=== PATIENT | male | born 1940 | race Caucasian/White ===

== ENCOUNTER 2023-12-03 17:18 | Emergency (ER) | payer OTHER, SELFPAY ==
[2023-12-03] VITALS (15 sets, daily range): BP systolic 108–176; BP diastolic 59–76; PULSE 66–76; RESP 18; TEMP 36.2; O2SAT 93–99; BMI 27.7
--- NOTE | 2023-12-03 17:49 | ED.NAVMDI ---
HPI - Nausea/Vomiting/Diarrhea General Chief complaint: GI Bleed Stated complaint: vomiting blood Time Seen by Provider: 12/03/23 17:21 History of Present Illness HPI Narrative: This 83-year-old male comes in reporting rather sudden onset of vertigo symptoms that was soon followed by nausea with vomiting. He states that he vomited 5 times in in the last emesis there was some dark red color that seem more suspicious of blood. The patient comes in and has normal vital signs. While I was initially interviewing him he had a very large dark red emesis. The patient does have a history of gastroesophageal reflux disease and had been taking omeprazole for a long time but discontinued this a few months ago because his magnesium was at 0.9. He has now been taking famotidine and magnesium supplementation. He did not have any lightheadedness. He continues to have some vertigo symptoms. He does not report any weakness or unilateral neurologic symptoms. Related Data Home Medications ?Medication ?Instructions ?Recorded ?Confirmed amlodipine 5 mg tablet 5 mg PO DAILY 12/03/23 12/03/23 aspirin 81 mg tablet,delayed 81 mg PO DAILY 12/03/23 12/03/23 release (Adult Aspirin Regimen) coenzyme Q10 100 mg capsule (Co 100 mg PO DAILY 12/03/23 12/03/23 Q-10) famotidine 40 mg tablet 40 mg PO DAILY 12/03/23 12/03/23 isosorbide mononitrate 60 mg 60 mg PO DAILY 12/03/23 12/03/23 tablet,extended release 24 hr lisinopril 40 mg tablet 40 mg PO DAILY 12/03/23 12/03/23 metformin 1,000 mg tablet,extended 1,000 mg PO DAILY 12/03/23 12/03/23 release 24hr (osmotic) metoprolol tartrate 50 mg tablet 50 mg PO BID 12/03/23 12/03/23 rosuvastatin 20 mg tablet 20 mg PO DAILY 12/03/23 12/03/23 Allergies Allergy/AdvReac Type Severity Reaction Status Date / Time morphine Allergy Mild Verified 12/03/23 17:29 Review of Systems Status of ROS: Reports: 10 or more systems reviewed and unremarkable except as noted in History and below Narrative: Constitutional: No fevers, no weight gain or loss. Eyes: No discharge. No vision changes. HENT: No congestion, no sore throat, no ear pain. Cardiovascular: No chest pain, no palpitations. Respiratory: No shortness of breath, no wheezes, no cough. Gastrointestinal: No abdominal pain. No diarrhea. Nausea and vomiting as described above. Genitourinary: No dysuria, no hematuria. Musculoskeletal: Normal range of motion. Skin: No rashes, no pruritis. Neurological: No dizziness, weakness, sensory change, speech change. Endo/Heme/Allergies: No bruising or bleeding. No polydipsia. Pysch: no suicidality, no anxiety, no insomnia. All other systems reviewed and are negative. [facility] Social History Smoking Status: Former smoker Do you use any of these nicotine containing products: None How often do you have a drink containing alcohol: monthly or less AUDIT-C Alcohol total score: 1 Non-prescribed substance use: denies use Exam Narrative: Exam Narrative: Constitutional: Well-developed, well-nourished, no acute distress. HEENT: Normocephalic, atraumatic. Neck: Normal range of motion. Nontender. Supple. Heart: Regular. No murmurs. Normal rate. Intact distal pulses. Lungs: Clear to auscultation. No chest discomfort. No wheezes, rhonchi, or rales. Abdomen: Normal bowel sounds. Nontender. No rebound tenderness. Large dark red emesis. Genitalia: Deferred. Back: No midline tenderness. Normal range of motion. Extremities: Normal range of motion. No injury. Skin: Intact. No rash. Warm. No erythema or pallor. Neurologic: No altered sensation. No weakness. Alert and oriented. Psychiatric: No suicidality. No anxiety or depression. No insomnia. Nursing notes and vitals signs are reviewed. Const: Vital Signs, click to edit/add: Vital Signs - 24 hr 12/03/23 17:24 12/03/23 17:34 12/03/23 17:57 Temperature 97.2 F L Pulse Rate Pulse Rate [Right Pulse Oximeter] 76 73 Respiratory Rate 18 Blood Pressure Blood Pressure [Le ft Upper Arm] 176/76 H 133/75 Pulse Oximetry 99 97 Oxygen Delivery Me thod Room Air Room Air 12/03/23 18:19 12/03/23 18:20 Temperature Pulse Rate 69 70 Pulse Rate [Right Pulse Oximeter] Respiratory Rate Blood Pressure 120/68 Blood Pressure [Le ft Upper Arm] Pulse Oximetry 96 97 Oxygen Delivery Me thod Course Vital Signs Vital signs: Initial Vital Signs Pulse Rate 76 12/03/23 17:24 Pulse Rhythm Regular 12/03/23 17:24 Respiratory Rate 18 12/03/23 17:24 Blood Pressure 176/76 H 12/03/23 17:24 Blood Pressure Mean 109 H 12/03/23 17:24 Blood Pressure Position Sitting 12/03/23 17:24 Pulse Oximetry 99 12/03/23 17:24 Oxygen Delivery Method Room Air 12/03/23 17:24 Vital Signs Pulse Rate 76 12/03/23 17:24 Respiratory Rate 18 12/03/23 17:24 Blood Pressure 176/76 H 12/03/23 17:24 Pulse Oximetry 99 12/03/23 17:24 Oxygen Delivery Method Room Air 12/03/23 17:24 Temperature 97.2 F L 12/03/23 17:34 Pulse Rate 70 12/03/23 18:20 Respiratory Rate 18 12/03/23 17:24 Blood Pressure 120/68 12/03/23 18:19 Pulse Oximetry 97 12/03/23 18:20 Oxygen Delivery Method Room Air 12/03/23 17:57 Medications Administered Medications: Discontinued Medications Generic Name Dose Route Start Last Admin Trade Name Freq PRN Reason Stop Dose Admin Sodium Chloride 1,000 mls @ 1,000 mls/hr 12/03/23 18:00 12/03/23 18:05 0.9 % Sodium Chloride 1000 Ml IV 12/03/23 18:59 1,000 mls/hr .Q1H DELVIN Administration Ondansetron HCl 4 mg 12/03/23 17:49 12/03/23 18:03 Ondansetron 2 Mg/Ml Inj IVP 12/03/23 17:50 4 mg ONCE ONE Administration MDM - Nausea/Vomiting/Diarrhea MDM Narrative Medical decision making narrative: This 83-year-old male comes in with vertigo symptoms that cause nausea and vomiting. As he continued to have episodes of vomiting he started this noticed some dark red color to the vomit that was suspicious for blood. He did have an episode of vomiting like this in the emergency department. Two IVs were established and labs are acquired. The patient received a L of normal saline intravenously. He consistently had normal vital signs and states that he is feeling better. He is not reporting vertigo symptoms any longer. His neurologic exam is completely normal. Lab results also returned with reassuring findings. His hemoglobin is 14.7. His lactate returned elevated at 4.0 but he is not showing any sign of sepsis or infection. His white count is in normal range. The patient states that he is feeling better and has not had any continued sign of ongoing bleeding. He has not had any diarrhea or dark colored stools. The patient states that he would like to go home. IA stated that this is more likely a Maryan-Luis tear that occurred because of his aggressive vomiting related to the vertigo. He lives about a mile the patient did receive an IV dose of Protonix 40 mg. He was advised a few months ago to follow-up with his primary physician and consider the role of an endoscopy. I stated that this would be the best test to evaluate further. He will call for appointment or return if symptoms are recurrent. from here and would be able to return if symptoms are recurrent or ongoing. Lab Data Labs: Lab Results 12/03/23 Range/Units 17:58 WBC 8.79 (4.50-11.00) K/uL RBC 4.66 (4.30-5.90) m/uL Hgb 14.7 (13.5-17.5) gm/dL Hct 43.9 (37.0-53.0) % MCV 94 (80-100) fL MCH 32 (26-34) pg MCHC 34 (32-36) gm/dL RDW Coeff of Brennon 12.2 (11.5-15.5) % Plt Count 228 (140-440) K/uL Neut % (Auto) 66.6 (42.0-72.0) % Lymph % (Auto) 22.2 (20-44) % [place] % (Auto) 8.6 (0.0-11.0) % Eos % (Auto) 1.8 (0.0-7.0) % Baso % (Auto) 0.6 (0.0-3.0) % Neut # (Auto) 5.85 (1.7-7.0) K/uL Lymph # (Auto) 1.95 (0.90-2.90) K/uL [place] # (Auto) 0.80 (0.00-0.90) K/UL Eos # (Auto) 0.16 (0.00-0.50) K/uL Baso # (Auto) 0.05 (0.00-0.30) K/uL Abs Immat Gran (auto) 0.02 (0.00-0.30) K/uL Imm/Tot Granulo (auto) 0.2 % Sodium 133 L (135-149) mmol/L Potassium 3.9 (3.6-5.1) mmol/L Chloride 95 L (96-114) mmol/L Carbon Dioxide 24 (20-32) mmol/L Anion Gap 14 (7-15) mEq/L BUN 18 (7-30) mg/dL Creatinine 0.9 (0.5-1.5) mg/dL Estimated Creat Clear 65.47 Estimated GFR 86 ml/min Glucose 181 H (60-115) mg/dL Lactate 4.0 H (0.5-1.9) mmol/L Calcium 9.7 (8.4-10.6) mg/dL Magnesium 1.5 (1.5-2.6) mg/dL Total Bilirubin 1.3 (0.1-1.5) mg/dL Direct Bilirubin 0.3 (0.0-0.5) mg/dL AST 41 H (12-35) U/L ALT 23 (4-50) U/L Alkaline Phosphatase 51 (40-150) U/L Total Protein 7.4 (6.0-8.3) g/dL Albumin 4.8 (3.3-5.0) g/dL Blood Type O Positive Discharge Plan Discharge Clinical Impression: Maryan-Luis syndrome, Vertigo Patient Disposition: Home w/ Parent or Adult Condition: Improved Additional Instructions: Continue current plans. Increase diet as tolerated. Follow up with MD return if symptoms are recurrent. Prescriptions: No Action metoprolol tartrate 50 mg tablet 50 mg PO BID famotidine 40 mg tablet 40 mg PO DAILY lisinopril 40 mg tablet 40 mg PO DAILY rosuvastatin 20 mg tablet 20 mg PO DAILY metformin 1,000 mg tablet extended release 24hr 1,000 mg PO DAILY isosorbide mononitrate 60 mg tablet extended release 24 hr 60 mg PO DAILY amlodipine 5 mg tablet 5 mg PO DAILY aspirin [Adult Aspirin Regimen] 81 mg tablet,delayed release (DR/EC) 81 mg PO DAILY coenzyme Q10 [Co Q-10] 100 mg capsule 100 mg PO DAILY Follow Up/Referrals: Provider,Not a Local [Primary Care Provider] - Stand Alone Forms: [facility] Info Instructions
[2023-12-03] MEDS: ONDANSETRON 2 MG/ML inj 4 MG IVP (18:03)
[2023-12-03 18:05] LABS: Basophils Absolute Auto 0.05 K/uL (0.00-0.30); Basophils Percent Auto 0.6 % (0.0-3.0); Eosinophils Absolute Auto 0.16 K/uL (0.00-0.50); Eosinophils Percent Auto 1.8 % (0.0-7.0); Hematocrit 43.9 % (37.0-53.0); Hemoglobin* 14.7 gm/dL (13.5-17.5); Immature Granulocytes Abs Auto 0.02 K/uL (0.00-0.30); Immature Granulocytes Pct Auto 0.2 %; Lymphocytes Absolute Auto 1.95 K/uL (0.90-2.90); Lymphocytes Percent Auto 22.2 % (20-44); Mean Corpuscular HGB Conc 34 gm/dL (32-36); Mean Corpuscular Hemoglobin 32 pg (26-34); Mean Corpuscular Volume 94 fL (80-100); Monocytes Percent Auto 8.6 % (0.0-11.0); Neutrophils Absolute Auto 5.85 K/uL (1.7-7.0); Neutrophils Percent Auto 66.6 % (42.0-72.0); Platelet Count* 228 K/uL (140-440); RDW Coefficient of Variation % 12.2 % (11.5-15.5); Red Blood Count 4.66 m/uL (4.30-5.90); White Blood Count* 8.79 K/uL (4.50-11.00)
[2023-12-03] MEDS: 0.9 % SODIUM CHLORIDE 1000 ml 1,000 ML IV (18:05)
[2023-12-03 18:17] LABS: Slide Review Reflex No
[2023-12-03 18:19] LABS: Chloride* 95 mmol/L (96-114); Potassium* 3.9 mmol/L (3.6-5.1); Sodium* 133 mmol/L (135-149)
[2023-12-03 18:22] LABS: Anion Gap 14 mEq/L (7-15); Blood Urea Nitrogen* 18 mg/dL (7-30); Carbon Dioxide* 24 mmol/L (20-32); Creatinine* 0.9 mg/dL (0.5-1.5); Est. Creatinine Clearance* 65.47; Estimated Glomerular Filt Rate 86 ml/min
[2023-12-03 18:23] LABS: Calcium* 9.7 mg/dL (8.4-10.6); Glucose* 181 mg/dL (60-115)
[2023-12-03 18:43] LABS: Albumin* 4.8 g/dL (3.3-5.0)
[2023-12-03 18:46] LABS: Alkaline Phosphatase* 51 U/L (40-150); Aspartate Amino Transferase* 41 U/L (12-35); Bilirubin Direct* 0.3 mg/dL (0.0-0.5); Bilirubin Total* 1.3 mg/dL (0.1-1.5); Magnesium* 1.5 mg/dL (1.5-2.6); Total Protein* 7.4 g/dL (6.0-8.3)
[2023-12-03 18:47] LABS: Alanine Aminotransferase* 23 U/L (4-50)
[2023-12-03] MEDS: PANTOPRAZOLE SODIUM 40 MG INJ IVP (19:40)
== END 2023-12-03 19:49 | disposition home or self-care (01) ==
PROVIDERS: Emergency Provider Emergency Medicine Emergency Medical Services
DX: K22.6 Gastro-esophageal laceration-hemorrhage syndrome (principal); R42 Dizziness and giddiness
CPT/HCPCS: 36415; 80048; 80076; 83605; 83735; 85025; 86850; 86900; 86901; 96361; 96374; 96375; 99284; J2405; J2470; J7030

== ENCOUNTER 2023-12-31 08:21 | Emergency (ER) | payer OTHER, SELFPAY ==
[2023-12-31 08:37] VITALS: BP 184/87; PULSE 61; PULSE 68; RESP 14; RESP 18; TEMP 36.1; O2SAT 96; O2SAT 98; BMI 27.4
[2023-12-31 09:02] VITALS: BP 172/80; PULSE 61; RESP 16; O2SAT 96
[2023-12-31 09:32] VITALS: BP 170/88; PULSE 67; RESP 14; O2SAT 97
--- NOTE | 2023-12-31 09:32 | CRLHL7_ITS ---
For Patients: As a result of the Century Cures Act, medical imaging exams and procedure reports are released immediately into your electronic medical record. You may view this report before your referring provider. If you have questions, please contact your health care provider. INDICATION: COVID, possible pneumonia. COMPARISON: None. TECHNIQUE: CT chest without contrast. Multiplanar axial, coronal, and sagittal reformats are included. Intravenous contrast: None FINDINGS: Airway: Normal tracheobronchial tree. Lungs: Clustered calcified granulomas in the left lower lobe. No consolidations. Normal appearance of the pulmonary interstitium. Pleura: No pleural effusion. No pneumothorax. Lymph nodes: No thoracic adenopathy. Mediastinum: No pneumomediastinum. No mass. Heart and great vessels: No pericardial effusion. Normal cardiac chamber size. Heavy atherosclerotic plaques. 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 No aortic aneurysm. Normal caliber main pulmonary artery. Chest wall: Normal. No masses. Upper abdomen: Cholecystectomy. Splenic granulomas. Single coarse calcification in the pancreatic tail. Bones: No fractures. No focal bone lesions. IMPRESSION: Lungs clear. No pneumonia. Please note that all CT scans at this facility use dose modulation, iterative reconstruction, and/or weight-based dosing when appropriate to reduce radiation dose to as low as reasonably achievable. Dictated by Stefanie Garcia MD @ 12/31/2023 10:22:53 AM (Electronically Signed)
--- NOTE | 2023-12-31 09:32 | CRLHL7_ITS ---
For Patients: As a result of the Century Cures Act, medical imaging exams and procedure reports are released immediately into your electronic medical record. You may view this report before your referring provider. If you have questions, please contact your health care provider. INDICATION: Altered mental status, COVID. COMPARISON: None. TECHNIQUE: CT of the brain / head without intravenous contrast. Multiplanar axial, coronal, and sagittal reformats were reconstructed. FINDINGS: No intracranial hemorrhage. Very minimal age-related parenchymal volume loss. No acute or subacute cortically based infarct. No mass or mass effect. Mild asymmetry of the lateral ventricles is within normal variation of development. No skull fractures. No worrisome focal bone lesion. Mild diffuse paranasal sinus mucosal thickening without any air-fluid levels. The mastoids and middle ears are well aerated and clear. IMPRESSION: 1. Normal intracranial contents. 2. Mild paranasal sinus mucosal thickening. Please note that all CT scans at this facility use dose modulation, iterative reconstruction, and/or weight-based dosing when appropriate to reduce radiation dose to as low as reasonably achievable. Dictated by Stefanie Garcia MD @ 12/31/2023 10:14:51 AM (Electronically Signed)
--- NOTE | 2023-12-31 09:39 | ED_ITS ---
HPI - General Adult General Date Seen: 12/31/23 Chief complaint: Altered Mental Status Stated complaint: Covid positive, confused, throwing up Time Seen by Provider: 12/31/23 08:26 Source: patient and family Mode of arrival: ambulatory Limitations: no limitations History of Present Illness HPI narrative: Patient is an 83-year-old male presenting to emergency department with his for concerns of altered mental status, COVID positive, nausea, dizziness. His states the patient was doing well but they Saturday started having [place] He tested positive for COVID home. She then noticed this morning he seemed to be confused and is not exactly where he was. This is abnormal for him and she was concerned so she called the triage line was told to come to the emergency department for evaluation. But time they arrived to the emergency department he is now back to his cognitive baseline is able answer all questions appropriately she says. He does note he is currently feeling lightheaded but does feel better when in bed. Does notice he gets dizzy me looks to the left but otherwise is not having any dizziness. Describes dizziness as the room is spinning. Was diagnosed with peripheral vertigo 2 weeks ago that has since resolved. This feels similar. He states he has been vomiting quite a bit today and is still feeling nauseated. Has not taking anything for nausea at home. He also started coughing up yellow phlegm. Denies abdominal pain, headache, weakness, dizziness, diarrhea, constipation. He does feel fatigued. Related Data Home Medications ?Medication ?Instructions ?Recorded ?Confirmed amlodipine 5 mg tablet 5 mg PO DAILY 12/03/23 12/03/23 aspirin 81 mg tablet,delayed 81 mg PO DAILY 12/03/23 12/03/23 release (Adult Aspirin Regimen) coenzyme Q10 100 mg capsule (Co 100 mg PO DAILY 12/03/23 12/03/23 Q-10) famotidine 40 mg tablet 40 mg PO DAILY 12/03/23 12/03/23 isosorbide mononitrate 60 mg 60 mg PO DAILY 12/03/23 12/03/23 tablet,extended release 24 hr lisinopril 40 mg tablet 40 mg PO DAILY 12/03/23 12/03/23 metformin 1,000 mg tablet,extended 1,000 mg PO DAILY 12/03/23 12/03/23 release 24hr (osmotic) metoprolol tartrate 50 mg tablet 50 mg PO BID 12/03/23 12/03/23 rosuvastatin 20 mg tablet 20 mg PO DAILY 12/03/23 12/03/23 Previous Rx's ?Medication ?Instructions ?Recorded nirmatrelvir 300 mg (150 mg See Rx Instructions PO .COMPLEX 12/31/23 x2)-ritonavir 100 mg tablet,dose #30 ea pack (Paxlovid) Allergies Allergy/AdvReac Type Severity Reaction Status Date / Time morphine Allergy Mild Verified 12/03/23 17:29 Review of Systems Status of ROS: Reports: 10 or more systems reviewed and unremarkable except as noted in History and below [facility] Social History Smoking Status: Former smoker Do you use any of these nicotine containing products: None How often do you have a drink containing alcohol: monthly or less AUDIT-C Alcohol total score: 1 Non-prescribed substance use: denies use Exam Narrative: Exam Narrative: Const: Well-nourished, Well-developed, in mild distress Eyes: PERRL, no conjunctival injection, and symmetrical lids HENT: Atraumatic external nose and ears. Moist mucous membranes. Neck: Symmetric, trachea midline, No thyromegaly. CVS: RRR, No murmurs or gallops. Peripheral pulses 2+ and equal in all extremities RESP: Unlabored respiratory effort. Clear to auscultation bilaterally. GI: Nontender/Nondistended, No rebound or guarding. MSK:Extremities w/o deformity, Normal Active ROM Skin: Warm, Dry. No rashes or lesions. Neuro: Normal Muscle tone, No focal neurological deficits. Psych: Awake, Alert, & Oriented x3. Appropriate mood and affect. Const: Vital Signs, click to edit/add: Vital Signs - 24 hr 12/31/23 08:37 Temperature 97.0 F L Pulse Rate [Pulse Oximeter] 68 Respiratory Rate 18 Blood Pressure [Ri ght Upper Arm] 184/87 H Pulse Oximetry 96 Oxygen Delivery Me thod Room Air Course Vital Signs Vital signs: Initial Vital Signs Temperature 97.0 F L 12/31/23 08:37 Temperature Source Temporal Artery Scan 12/31/23 08:37 Pulse Rate 68 12/31/23 08:37 Pulse Rhythm Regular 12/31/23 08:37 Respiratory Rate 18 12/31/23 08:37 Blood Pressure 184/87 H 12/31/23 08:37 Blood Pressure Mean 119 H 12/31/23 08:37 Blood Pressure Position Sitting 12/31/23 08:37 Pulse Oximetry 96 12/31/23 08:37 Oxygen Delivery Method Room Air 12/31/23 08:37 Vital Signs Temperature 97.0 F L 12/31/23 08:37 Pulse Rate 68 12/31/23 08:37 Respiratory Rate 18 12/31/23 08:37 Blood Pressure 184/87 H 12/31/23 08:37 Pulse Oximetry 96 12/31/23 08:37 Oxygen Delivery Method Room Air 12/31/23 08:37 Temperature 97.0 F L 12/31/23 08:37 Pulse Rate 68 12/31/23 08:37 Respiratory Rate 18 12/31/23 08:37 Blood Pressure 184/87 H 12/31/23 08:37 Pulse Oximetry 96 12/31/23 08:37 Oxygen Delivery Method Room Air 12/31/23 08:37 Medical Decision Making MDM Narrative Medical decision making narrative: Patient is an 83-year-old male presenting to the emergency department for COVID an altered mental status. They noted mental status seems has resolved by the time he got to the hospital but will also do a CT scan of his head. He is also having some dizziness. The differential diagnosis of vertigo is broad and includes common etiologies such as menieres disease, labyrinthitis, benign positional vertigo, otitis media, etc. More serious etiologies considered include central etiologies such as tumor, intracerebral bleed, dissection, ischemic cerebral vascular accident. At this time I believe this is most likely to be peripheral considering he had vertigo a couple weeks ago and symptoms are only there when he turns his head to the left. His lightheadedness seems to be related to the COVID and possible dehydration. Will order IV cm, CBC, troponin, CMP, EKG, urinalysis. Will also do CT scan of his head and chest. 1 L of lactated Ringer's order along with Zofran. Patient's lab work returned showing no concerning abnormalities. White blood cell count is low which is consistent with a viral infection. He also slightly low hemoglobin and platelets again likely from viral infection. Urinalysis shows no signs of UTI. No other abnormality seen. CT scans of the chest and head reviewed by myself radiologist shows no concerning abnormalities. He states he is feeling much better at this time history of and is not lightheaded or dizzy at this time. He is continuing to have no confusion while in the emergency department and I do believe he is safe for discharge. Some of his symptoms may also have been from dehydration. He is within the treatment window for Paxlovid and this was ordered. Lab Data Labs: Lab Results 12/31/23 12/31/23 Range/Units 09:00 10:47 WBC 3.58 L (4.50-11.00) K/uL RBC 4.18 L (4.30-5.90) m/uL Hgb 13.4 L (13.5-17.5) gm/dL Hct 40.3 (37.0-53.0) % MCV 96 (80-100) fL MCH 32 (26-34) pg MCHC 33 (32-36) gm/dL RDW Coeff of Brennon 12.7 (11.5-15.5) % Plt Count 134 L (140-440) K/uL Neut % (Auto) 65.6 (42.0-72.0) % Lymph % (Auto) 21.5 (20-44) % [place] % (Auto) 10.6 (0.0-11.0) % Eos % (Auto) 1.7 (0.0-7.0) % Baso % (Auto) 0.3 (0.0-3.0) % Neut # (Auto) 2.30 (1.7-7.0) K/uL Lymph # (Auto) 0.80 L (0.90-2.90) K/uL [place] # (Auto) 0.40 (0.00-0.90) K/UL Eos # (Auto) 0.10 (0.00-0.50) K/uL Baso # (Auto) 0.00 (0.00-0.30) K/uL Abs Immat Gran (auto) 0.00 (0.00-0.30) K/uL Imm/Tot Granulo (auto) 0.3 % Sodium 134 L (135-149) mmol/L Potassium 4.6 (3.6-5.1) mmol/L Chloride 99 (96-114) mmol/L Carbon Dioxide 31 (20-32) mmol/L Anion Gap 4 L (7-15) mEq/L BUN 14 (7-30) mg/dL Creatinine 0.8 (0.5-1.5) mg/dL Estimated Creat Clear 65.47 Estimated GFR 89 ml/min Glucose 162 H (60-115) mg/dL Calcium 8.9 (8.4-10.6) mg/dL Magnesium 1.8 (1.5-2.6) mg/dL Total Bilirubin 1.0 (0.1-1.5) mg/dL AST 33 (12-35) U/L ALT 25 (4-50) U/L Alkaline Phosphatase 47 (40-150) U/L Troponin I 0.04 (0.01-0.04) ng/mL Total Protein 6.9 (6.0-8.3) g/dL Albumin 4.3 (3.3-5.0) g/dL Urine Color Yellow (Yellow) Urine Appearance Clear (Clear) Urine pH 7.5 (5.0-8.5) Ur Specific [place] 1.015 (1.000-1.030) Urine Protein Negative (Negative) Urine Glucose (UA) Negative (Negative) Urine Ketones Negative (Negative) Urine Blood Negative (Negative) Urine Nitrite Negative (Negative) Urine Bilirubin Negative (Negative) Urine Urobilinogen 0.2 (0.2-1.0) Ur Leukocyte Esterase Negative (Negative) Urine RBC 0-2 (0-2) Urine WBC 0-2 (0-5) Ur Squamous Epith Cells Few (None-Few) Amorphous Sediment Many A (None) Urine Bacteria Few A (None) Imaging Data CT scan head: Attestation: I have reviewed the pertinent imaging results. Radiologist's impression: 1. Normal intracranial contents. 2. Mild paranasal sinus mucosal thickening. Please note that all CT scans at this facility use dose modulation, iterative reconstruction, and/or weight-based dosing when appropriate to reduce radiation dose to as low as reasonably achievable. Dictated by Stefanie Garcia MD @ 12/31/2023 10:14:[address] scan chest: Attestation: I have reviewed the pertinent imaging results. Radiologist's impression: Lungs clear. No pneumonia. Please note that all CT scans at this facility use dose modulation, iterative reconstruction, and/or weight-based dosing when appropriate to reduce radiation dose to as low as reasonably achievable. Dictated by Stefanie Garcia MD @ 12/31/2023 10:22:53 AM ECG Data Attestation: I personally reviewed and interpreted this ECG as follows: Interpretation: Sinus bradycardia rate 50 beats per minute, normal intervals, normal axis, no ST or T-wave abnormalities. Discharge Plan Discharge Clinical Impression: COVID Patient Disposition: Home, Self-Care Condition: Improved Instructions: COVID-19 (Coronavirus Disease 2019) (ED) Additional Instructions: While taking Paxlovid do the following med adjustments: Amlodipine - cut dose in half for take every other day Rosuvastatin - stop taking I believe your dizziness was related to your COVID infection along with the confusion had this morning. At this time there is no signs of bacterial pneumonia. Return to emergency department for new or worsening symptoms. Make sure to stay well hydrated. Prescriptions: New Paxlovid 300 mg (150 mg x 2)-100 mg tablets,dose pack See Rx Instructions .ROUTE .COMPLEX Qty: 30 0RF Rx Instructions: take TWO 150 mg tablets of nirmatrelvir with ONE 100 mg tablet of ritonavir twice daily for 5 days No Action metoprolol tartrate 50 mg tablet 50 mg PO BID famotidine 40 mg tablet 40 mg PO DAILY lisinopril 40 mg tablet 40 mg PO DAILY rosuvastatin 20 mg tablet 20 mg PO DAILY metformin 1,000 mg tablet extended release 24hr 1,000 mg PO DAILY isosorbide mononitrate 60 mg tablet extended release 24 hr 60 mg PO DAILY amlodipine 5 mg tablet 5 mg PO DAILY aspirin [Adult Aspirin Regimen] 81 mg tablet,delayed release (DR/EC) 81 mg PO DAILY coenzyme Q10 [Co Q-10] 100 mg capsule 100 mg PO DAILY Follow Up/Referrals: Provider,Not a Local [Non-Staff] - Stand Alone Forms: [employer] Info Instructions
[2023-12-31 09:44] LABS: Basophils Percent Auto 0.3 % (0.0-3.0); Eosinophils Percent Auto 1.7 % (0.0-7.0); Hematocrit 40.3 % (37.0-53.0); Hemoglobin* 13.4 gm/dL (13.5-17.5); Immature Granulocytes Pct Auto 0.3 %; Lymphocytes Percent Auto 21.5 % (20-44); Mean Corpuscular HGB Conc 33 gm/dL (32-36); Mean Corpuscular Hemoglobin 32 pg (26-34); Mean Corpuscular Volume 96 fL (80-100); Monocytes Percent Auto 10.6 % (0.0-11.0); Neutrophils Percent Auto 65.6 % (42.0-72.0); Platelet Count* 134 K/uL (140-440); RDW Coefficient of Variation % 12.7 % (11.5-15.5); Red Blood Count 4.18 m/uL (4.30-5.90); White Blood Count* 3.58 K/uL (4.50-11.00)
[2023-12-31 09:45] LABS: Slide Review Reflex No
[2023-12-31 10:03] LABS: Chloride* 99 mmol/L (96-114)
[2023-12-31 10:04] LABS: Albumin* 4.3 g/dL (3.3-5.0); Sodium* 134 mmol/L (135-149)
[2023-12-31 10:05] LABS: Potassium* 4.6 mmol/L (3.6-5.1)
[2023-12-31 10:07] LABS: Alanine Aminotransferase* 25 U/L (4-50); Alkaline Phosphatase* 47 U/L (40-150); Anion Gap 4 mEq/L (7-15); Aspartate Amino Transferase* 33 U/L (12-35); Blood Urea Nitrogen* 14 mg/dL (7-30); Calcium* 8.9 mg/dL (8.4-10.6); Carbon Dioxide* 31 mmol/L (20-32); Creatinine* 0.8 mg/dL (0.5-1.5); Est. Creatinine Clearance* 65.47; Estimated Glomerular Filt Rate 89 ml/min; Glucose* 162 mg/dL (60-115); Total Protein* 6.9 g/dL (6.0-8.3)
[2023-12-31 10:08] LABS: Magnesium* 1.8 mg/dL (1.5-2.6)
[2023-12-31 10:19] LABS: Troponin I* 0.04 ng/mL (0.01-0.04)
[2023-12-31 10:32] VITALS: BP 153/84; PULSE 58; RESP 16; O2SAT 98
[2023-12-31 11:08] LABS: Appearance Urine Clear (Clear); Bilirubin Urine Negative (Negative); Blood Urine Negative (Negative); Color Urine Yellow (Yellow); Glucose Urine Negative (Negative); Ketones Urine Negative (Negative); Leukocyte Esterase Urine Negative (Negative); Nitrite Urine Negative (Negative); Protein Urine Negative (Negative); Specific Gravity Urine 1.015 (1.000-1.030); Urobilinogen Urine 0.2 (0.2-1.0); pH Urine 7.5 (5.0-8.5)
[2023-12-31 11:14] LABS: RBC Urine 0-2 (0-2); Squamous Epithelial Cell Urine Few (None-Few); WBC Urine 0-2 (0-5)
[2023-12-31 11:15] LABS: Amorphous Sediment Urine Many; Bacteria Urine Few
[2023-12-31 11:32] VITALS: BP 135/72; PULSE 53; RESP 14; O2SAT 96
[2023-12-31 12:30] VITALS: BP 184/87; PULSE 68; RESP 14; TEMP 36.1
== END 2023-12-31 12:35 | disposition home or self-care (01) ==
PROVIDERS: Emergency Provider Student in an Organized Health Care Education/Training Program; PCP Family Medicine
DX: R42 Dizziness and giddiness (principal); R11.2 Nausea with vomiting, unspecified
CPT/HCPCS: 36415; 70450; 71250; 80053; 81001; 83735; 84484; 85025; 87086; 93005; 99283; 99284

== ENCOUNTER 2024-01-09 10:06 | Emergency (ER) | payer OTHER, SELFPAY ==
[2024-01-09] VITALS (20 sets, daily range): BP systolic 130–157; BP diastolic 71–86; PULSE 58–75; RESP 20; TEMP 36.6; O2SAT 93–99; BMI 27.3
--- NOTE | 2024-01-09 12:39 | ED_ITS ---
HPI - General Adult General Time Seen by Provider: 12:39 Date Seen: 01/09/24 Chief complaint: Nausea/Vomiting Stated complaint: dizziness, shaking, vomiting Time Seen by Provider: 01/09/24 12:37 Source: patient, RN notes reviewed and old records reviewed Mode of arrival: ambulatory Limitations: no limitations History of Present Illness HPI narrative: This 83-year-old male is accompanied by his to the ER for recurrent nausea and vomiting, no abdominal pain with it. He has had these recurrent spells going on for 3-4 months. On questioning, he will start having the nausea vomiting mostly with episodes of vertigo. He states the most recent 1 he was just sitting there, felt it come on and could see things moving in relation to him. Then he will start getting the nausea vomiting/retching. Sometimes he will feel shaky with this once it happens. He did have a head CT and was evaluated for some blood in the emesis with 1 of these episodes. 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 He did go to the ER in [place] in July. Was recommended that he have an H pylori test and referral to Gastroenterology. He has not done that yet, he did see a nurse practitioner out of [facility] system 2 days ago. She did put a referral in for an EGD with the [facility] testing, this cannot be done until March in [place] as they are booked out. She did prescribe him Zofran 0 DT. When he was in the ER in [place] in July, he had low magnesium, had nausea vomiting, had chest pain at that time and did have dizziness, he also tells me he had diarrhea that episode as well. He was switched off is omeprazole due to the low magnesium, was 0.9. Did have IV replacement at that time. Since then he has been put on famotidine b.i.d. and feels like his heartburn is controlled with this. He cannot say with 100% assured T that all of his nausea and vomiting spells are accompanied with the prodrome all dizziness/vertigo symptoms. He wears hearing aids, has not noted any change in his hearing. He did go to physical therapy after being seen in our ER on December 02 of this year. He states he went through 45 minutes of testing and they cleared him. They have subsequently scheduled appointment with Dr. Jhaveri for Saturday morning at [facility]. They did have recurrent questions and seemed to be fixated on getting the H pylori testing done. I do agree that I would check the H pylori testing but have reviewed with them that H pylori is not going to give him dizzy or vertiginous spells. If he is having nausea or chronic GI symptoms outside of these episodes, it certainly is reasonable in easy to check this. Reviewed that they could do a stool antigen test which could be ordered out of clinic on Saturday. Reviewed that there is not a way for me to test them out of the ER, we do not do the stool H pylori testing out of the ER as I have no follow-up for them. Of note, patient did have COVID in the interim, was diagnosed on December 30, did take Paxlovid, feels he has recovered fine from that. Patient reportedly had 1 of these spells recent, is currently asymptomatic now. Related Data Home Medications ?Medication ?Instructions ?Recorded ?Confirmed amlodipine 5 mg tablet 5 mg PO DAILY 12/03/23 01/09/24 aspirin 81 mg tablet,delayed 81 mg PO DAILY 12/03/23 01/09/24 release (Adult Aspirin Regimen) coenzyme Q10 100 mg capsule (Co 100 mg PO DAILY 12/03/23 01/09/24 Q-10) famotidine 40 mg tablet 40 mg PO DAILY 12/03/23 01/09/24 isosorbide mononitrate 60 mg 60 mg PO DAILY 12/03/23 01/09/24 tablet,extended release 24 hr lisinopril 40 mg tablet 40 mg PO DAILY 12/03/23 01/09/24 metformin 1,000 mg tablet,extended 1,000 mg PO DAILY 12/03/23 01/09/24 release 24hr (osmotic) metoprolol tartrate 50 mg tablet 50 mg PO BID 12/03/23 01/09/24 rosuvastatin 20 mg tablet 20 mg PO DAILY 12/03/23 01/09/24 ondansetron 4 mg disintegrating 4 mg PO Q8H PRN nausea/vomiting 01/09/24 01/09/24 tablet Allergies Allergy/AdvReac Type Severity Reaction Status Date / Time morphine Allergy Mild Verified 12/03/23 17:29 PFSH PFS Social History Smoking Status: Former smoker Do you use any of these nicotine containing products: None How often do you have a drink containing alcohol: monthly or less AUDIT-C Alcohol total score: 1 Non-prescribed substance use: denies use Exam Const: Vital Signs, click to edit/add: Vital Signs - 24 hr 01/09/24 10:20 01/09/24 12:56 01/09/24 13:00 Temperature 97.8 F Pulse Rate 70 67 Pulse Rate [Pulse Oximeter] 75 Respiratory Rate 20 Blood Pressure Blood Pressure [Ri ght Upper Arm] 157/76 H Pulse Oximetry 98 98 97 Oxygen Delivery Me thod Room Air 01/09/24 13:02 01/09/24 13:15 01/09/24 13:30 Temperature Pulse Rate 72 65 62 Pulse Rate [Pulse Oximeter] Respiratory Rate Blood Pressure 155/86 H Blood Pressure [Ri ght Upper Arm] Pulse Oximetry 98 97 97 Oxygen Delivery Me thod 01/09/24 13:35 01/09/24 13:36 01/09/24 14:08 Temperature Pulse Rate 65 68 64 Pulse Rate [Pulse Oximeter] Respiratory Rate Blood Pressure Blood Pressure [Ri ght Upper Arm] Pulse Oximetry 94 97 96 Oxygen Delivery Me thod 01/09/24 14:09 01/09/24 14:15 01/09/24 14:30 Temperature Pulse Rate 67 61 73 Pulse Rate [Pulse Oximeter] Respiratory Rate Blood Pressure 132/86 Blood Pressure [Ri ght Upper Arm] Pulse Oximetry 96 97 93 Oxygen Delivery Me thod 01/09/24 14:31 01/09/24 14:31 01/09/24 14:51 Temperature Pulse Rate 66 66 63 Pulse Rate [Pulse Oximeter] Respiratory Rate Blood Pressure 130/73 130/73 Blood Pressure [Ri ght Upper Arm] Pulse Oximetry 97 97 98 Oxygen Delivery Me thod 01/09/24 15:00 01/09/24 15:01 01/09/24 15:15 Temperature Pulse Rate 58 L 62 65 Pulse Rate [Pulse Oximeter] Respiratory Rate Blood Pressure 154/72 H Blood Pressure [Ri ght Upper Arm] Pulse Oximetry 98 98 97 Oxygen Delivery Me thod 01/09/24 15:30 01/09/24 15:31 01/09/24 15:45 Temperature Pulse Rate 64 59 L 65 Pulse Rate [Pulse Oximeter] Respiratory Rate Blood Pressure 156/71 H Blood Pressure [Ri ght Upper Arm] Pulse Oximetry 99 98 97 Oxygen Delivery Me benji Velásquez currently is alert, interactive, no apparent distress. Speech is normal. Pupils equal round reactive, sclera clear, no no nystagmus. Symmetric facial function. Lungs are clear, good air entry, no wheezing crackles. CV regular rate and rhythm, no murmur, normal S1-S2, no S3-S4. Abdomen is soft, nontender, nondistended, no organomegaly. Patient is ambulatory in the room of his own accord. Documenting provider has reviewed patient's vital signs: yes Course Course ED Course: Discussed with patient that I wanted to review his last few visits here closer. I will review the records he has. Likely to order some labs, likely to pay age neurology to discuss his ongoing vertigo symptoms, see if they think we should do an MRI. He certainly does seem to have episodes that sounds like vertigo induced nausea and vomiting. I cannot be sure that some of his nausea and vomiting is without vertigo, I cannot ascertain that from the history he is providing me. Reevaluation(s) Time of Reevaluation #1: 14:05 Reevaluation #1: Reviewed labs with patient, magnesium is stable. Hemoglobin is mildly low but stable, was the same when he was in with the COVID. Did discuss is EGD, he would like it if I could order it here as it will certainly be done in a much more timely fashion. He can have [facility] testing with the EGD. Did review his EKG from December 30, looks stable. Time of Reevaluation #2: 14:44 Reevaluation #2: Have reviewed with patient that he will be getting MRI to ensure no stroke as the cause of his vertiginous symptoms. It is likely that this is peripheral, have reviewed with him that if there is no stroke on his MRI, that he is likely to have recurrent symptoms. We did discuss the use of meclizine. We also reviewed Valium as a secondary treatment if meclizine does not work or symptoms are severe. 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 Thus, it does seem prudent that we avoid this for him. He certainly can try meclizine if MRI is not indicating any central etiology. They are aware that it will be a wait for the MRI. If peripheral etiology and ongoing, can always see ENT in follow-up, try meclizine. Time of Reevaluation #3: 17:30 Reevaluation #3: The patient is given his MRI. We reviewed that he has some age-related changes but there is no evidence of any stroke. We did review that he has less than 50% stenosis in his left internal carotid, probably not likely to give him any problem in his life time but can be followed with his primary. 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 He can try meclizine. I still would have him proceed with the EGD given his other GI symptoms that may not be associated with vertigo. He should try to keep track of this. Consultations Consultation #1: Have spoken with Dr. Martínez from Neurology at [facility]. She agrees that vertigo is difficult, would recommend that we confirm no central etiology with MRI of his brain as well as vascular imaging. Reviewed with her that I certainly can do the MRA of his carotids and COW. We discussed treatment if peripheral. Time: 14:25 Vital Signs Vital signs: Initial Vital Signs Temperature 97.8 F 01/09/24 10:20 Temperature Source Temporal Artery Scan 01/09/24 10:20 Pulse Rate 75 01/09/24 10:20 Respiratory Rate 01/09/24 10:20 Blood Pressure 157/76 H 01/09/24 10:20 Blood Pressure Mean 103 01/09/24 10:20 Blood Pressure Position Sitting 01/09/24 10:20 Pulse Oximetry 98 01/09/24 10:20 Oxygen Delivery Method Room Air 01/09/24 10:20 Vital Signs Temperature 97.8 F 01/09/24 10:20 Pulse Rate 75 01/09/24 10:20 Respiratory Rate 20 01/09/24 10:20 Blood Pressure 157/76 H 01/09/24 10:20 Pulse Oximetry 98 01/09/24 10:20 Oxygen Delivery Method Room Air 01/09/24 10:20 Temperature 97.8 F 01/09/24 10:20 Pulse Rate 65 01/09/24 15:45 Respiratory Rate 20 01/09/24 10:20 Blood Pressure 156/71 H 01/09/24 15:31 Pulse Oximetry 97 01/09/24 15:45 Oxygen Delivery Method Room Air 01/09/24 10:20 Medical Decision Making Lab Data Lab results reviewed: Yes I reviewed the patient's lab results Labs: Lab Results 01/09/24 Range/Units 13:20 WBC 9.12 (4.50-11.00) K/uL RBC 4.27 L (4.30-5.90) m/uL Hgb 13.4 L (13.5-17.5) gm/dL Hct 41.2 (37.0-53.0) % MCV 97 (80-100) fL MCH 31 (26-34) pg MCHC 33 (32-36) gm/dL RDW Coeff of Brennon 12.6 (11.5-15.5) % Plt Count 281 (140-440) K/uL Neut % (Auto) 83.2 H (42.0-72.0) % Lymph % (Auto) 9.5 L (20-44) % [place] % (Auto) 6.7 (0.0-11.0) % Eos % (Auto) 0.2 (0.0-7.0) % Baso % (Auto) 0.3 (0.0-3.0) % Neut # (Auto) 7.60 H (1.7-7.0) K/uL Lymph # (Auto) 0.90 (0.90-2.90) K/uL [place] # (Auto) 0.60 (0.00-0.90) K/UL Eos # (Auto) 0.02 (0.00-0.50) K/uL Baso # (Auto) 0.03 (0.00-0.30) K/uL Abs Immat Gran (auto) 0.01 (0.00-0.30) K/uL Imm/Tot Granulo (auto) 0.1 % Sodium 135 (135-149) mmol/L Potassium 4.2 (3.6-5.1) mmol/L Chloride 98 (96-114) mmol/L Carbon Dioxide 29 (20-32) mmol/L Anion Gap 8 (7-15) mEq/L BUN 13 (7-30) mg/dL Creatinine 0.8 (0.5-1.5) mg/dL Estimated Creat Clear 65.47 Estimated GFR 89 ml/min Glucose 180 H (60-115) mg/dL Calcium 9.1 (8.4-10.6) mg/dL Magnesium 1.9 (1.5-2.6) mg/dL Total Bilirubin 1.1 (0.1-1.5) mg/dL AST 26 (12-35) U/L ALT 22 (4-50) U/L Alkaline Phosphatase 58 (40-150) U/L Total Protein 7.3 (6.0-8.3) g/dL Albumin 4.5 (3.3-5.0) g/dL TSH 0.629 (0.270-4.200) uIU/mL Imaging Data MRI - head: Attestation: I have reviewed the pertinent imaging results. Radiologist's impression: Patient: BAY BUTT Facility:?[facility] Patient ID:?[id number] Site Patient ID:?[id number]. Site :?[id number] Study:?MRI-Head W/ and W/O Cont 20 CC DOATERM-01/09/2024 4:54:38 PM Ordering Physician:Danae Muñiz Final Report: INDICATION: Vertigo. TECHNIQUE: MRI brain: Multiplanar multisequence MR imaging of the brain prior to and following intravenous contrast. MRA head: [id number] imaging. MRA neck: [id number]-[id number] and postcontrast imaging. COMPARISON: CT brain 12/31/2023. FINDINGS: MRI brain: Mild diffuse cerebral volume loss. No mass effect or midline shift. Few punctate FLAIR hyperintensities in the supratentorial white matter, typical for minimal chronic microvascular ischemic changes. No diffusion restriction to suggest acute infarction. Punctate foci of susceptibility in the inferior left parietal lobe, typical for chronic microhemorrhages or mineralization. No recent intracranial hemorrhage or pathologic extra-axial fluid collection. No pathologic intracranial enhancement. The major arterial flow voids of the skullbase are present. The globes are symmetric. Mild paranasal sinus mucosal thickening. The mastoid air cells are clear. MRA head: The internal carotid, middle cerebral, and anterior cerebral arteries are widely patent. The vertebral, basilar, and posterior cerebral arteries are widely patent. No intracranial aneurysm or high-flow vascular malformation. MRA neck: The innominate and subclavian arteries are widely patent. The common carotid arteries are widely patent. Mild (less than 50 percent) proximal left cervical internal carotid stenosis. The right cervical internal carotid artery is widely patent. The left vertebral artery is dominant. The vertebral heights are maintained. IMPRESSION: MRI brain: 1. No acute intracranial abnormality. 2. Minimal chronic microvascular ischemic changes and mild diffuse cerebral volume loss. MRA head/neck: 1. Widely patent intracranial vasculature. 2. Mild (less than 50 percent) proximal left cervical internal carotid stenosis. Dictated by Bandar Luz MD @ 01/09/2024 5:10:14 PM (Electronic Signature) Discharge Plan Discharge Clinical Impression: Vertigo Nausea & vomiting Qualifiers: Vomiting type: unspecified Qualified Code(s): R11.2 - Nausea with vomiting, unspecified Patient Disposition: Home, Self-Care Additional Instructions: EGD order has been put in at our endoscopy center. They should call you hopefully by tomorrow afternoon to get scheduled. If you have not heard from them by a Saturday noon, please call the ED back and we will assist in making sure this gets scheduled. Can try Zofran for nausea not associated with vertigo. If you have further vertigo spells, can try meclizine 25 mg up to 3 times a day, this is sold [id number]. If vertigo continues to be problematic for you, can ask your primary care provider about a referral to ENT to see if they have anything else to offer you. Activity Level: Activity as Tolerated Discharge Diet: Heart Healthy (2 gm sodium, low fat) Prescriptions: No Action metoprolol tartrate 50 mg tablet 50 mg PO BID famotidine 40 mg tablet 40 mg PO DAILY lisinopril 40 mg tablet 40 mg PO DAILY rosuvastatin 20 mg tablet 20 mg PO DAILY metformin 1,000 mg tablet extended release 24hr 1,000 mg PO DAILY isosorbide mononitrate 60 mg tablet extended release 24 hr 60 mg PO DAILY amlodipine 5 mg tablet 5 mg PO DAILY aspirin [Adult Aspirin Regimen] 81 mg tablet,delayed release (DR/EC) 81 mg PO DAILY coenzyme Q10 [Co Q-10] 100 mg capsule 100 mg PO DAILY ondansetron 4 mg tablet,disintegrating 4 mg PO Q8H PRN (Reason: nausea/vomiting) Follow Up/Referrals: Balwinder Franco MD [Primary Care Provider] - Stand Alone Forms: [employer] Info Instructions
[2024-01-09 13:35] LABS: Basophils Absolute Auto 0.03 K/uL (0.00-0.30); Basophils Percent Auto 0.3 % (0.0-3.0); Eosinophils Absolute Auto 0.02 K/uL (0.00-0.50); Eosinophils Percent Auto 0.2 % (0.0-7.0); Hematocrit 41.2 % (37.0-53.0); Hemoglobin* 13.4 gm/dL (13.5-17.5); Immature Granulocytes Abs Auto 0.01 K/uL (0.00-0.30); Immature Granulocytes Pct Auto 0.1 %; Lymphocytes Percent Auto 9.5 % (20-44); Mean Corpuscular HGB Conc 33 gm/dL (32-36); Mean Corpuscular Hemoglobin 31 pg (26-34); Mean Corpuscular Volume 97 fL (80-100); Monocytes Percent Auto 6.7 % (0.0-11.0); Neutrophils Percent Auto 83.2 % (42.0-72.0); Platelet Count* 281 K/uL (140-440); RDW Coefficient of Variation % 12.6 % (11.5-15.5); Red Blood Count 4.27 m/uL (4.30-5.90); White Blood Count* 9.12 K/uL (4.50-11.00)
[2024-01-09 13:44] LABS: Slide Review Reflex No
[2024-01-09 13:45] LABS: Albumin* 4.5 g/dL (3.3-5.0); Chloride* 98 mmol/L (96-114)
[2024-01-09 13:46] LABS: Potassium* 4.2 mmol/L (3.6-5.1); Sodium* 135 mmol/L (135-149)
[2024-01-09 13:48] LABS: Anion Gap 8 mEq/L (7-15); Aspartate Amino Transferase* 26 U/L (12-35); Bilirubin Total* 1.1 mg/dL (0.1-1.5); Carbon Dioxide* 29 mmol/L (20-32); Creatinine* 0.8 mg/dL (0.5-1.5); Est. Creatinine Clearance* 65.47; Estimated Glomerular Filt Rate 89 ml/min; Total Protein* 7.3 g/dL (6.0-8.3)
[2024-01-09 13:49] LABS: Alanine Aminotransferase* 22 U/L (4-50); Alkaline Phosphatase* 58 U/L (40-150); Blood Urea Nitrogen* 13 mg/dL (7-30); Calcium* 9.1 mg/dL (8.4-10.6); Glucose* 180 mg/dL (60-115); Magnesium* 1.9 mg/dL (1.5-2.6)
[2024-01-09 14:32] LABS: TSH With Reflex to FT4* 0.629 uIU/mL (0.270-4.200)
--- NOTE | 2024-01-09 14:48 | CRLHL7_ITS ---
For Patients: As a result of the Century Cures Act, medical imaging exams and procedure reports are released immediately into your electronic medical record. You may view this report before your referring provider. If you have questions, please contact your health care provider. INDICATION: Vertigo. TECHNIQUE: MRI brain: Multiplanar multisequence MR imaging of the brain prior to and following intravenous contrast. MRA head: [id number] imaging. MRA neck: Pphv-cd-[id number] and postcontrast imaging. COMPARISON: CT brain 12/31/2023. FINDINGS: MRI brain: Mild diffuse cerebral volume loss. No mass effect or midline shift. Few punctate FLAIR hyperintensities in the supratentorial white matter, typical for minimal chronic microvascular ischemic changes. No diffusion restriction to suggest acute infarction. Punctate foci of susceptibility in the inferior left parietal lobe, typical for chronic microhemorrhages or mineralization. No recent intracranial hemorrhage or pathologic extra-axial fluid collection. No pathologic intracranial enhancement. The major arterial flow voids of the skullbase are present. The globes are symmetric. Mild paranasal sinus mucosal thickening. The mastoid air cells are clear. MRA head: The internal carotid, middle cerebral, and anterior cerebral arteries are widely patent. The vertebral, basilar, and posterior cerebral arteries are widely patent. No intracranial aneurysm or high-flow vascular malformation. MRA neck: The innominate and subclavian arteries are widely patent. The common carotid arteries are widely patent. Mild (less than 50 percent) proximal left cervical internal carotid stenosis. The right cervical internal carotid artery is widely patent. The left vertebral artery is dominant. The vertebral heights are maintained. IMPRESSION: MRI brain: 1. No acute intracranial abnormality. 2. Minimal chronic microvascular ischemic changes and mild diffuse cerebral volume loss. MRA head/neck: 1. Widely patent intracranial vasculature. 2. Mild (less than 50 percent) proximal left cervical internal carotid stenosis. Dictated by Bandar Luz MD @ 01/09/2024 5:09:45 PM (Electronically Signed)
== END 2024-01-09 17:48 | disposition home or self-care (01) ==
PROVIDERS: Emergency Provider Family Medicine; PCP Family Medicine
DX: R42 Dizziness and giddiness (principal); R11.2 Nausea with vomiting, unspecified
CPT/HCPCS: 36415; 70544; 70549; 70553; 80053; 83735; 84443; 85025; 99284; A9575